=== PATIENT | female | born 1975 ===

== ENCOUNTER 2017-08-27 08:38 | Inpatient (IN) | payer OTHER ==
[~2017-08-27] VITALS: Ht 165.1 cm; Wt 90.7 kg
[~2017-08-27 08:38] MED LIST: CLONAZEPAM0.5 MG; COZAAR100 MG; NORVASC10 MG; ORPH100T PO; SYNTHROID200 MCG; SYNTHROID50 MCG PO; ULTRACET PO; WELLBUTRIN XL300 MG PO; ZOLOFT100 MG PO
[2017-08-31] MEDS ORDERED: DOXYCYCLINE HY100 MG PO (17:54)
== END 2017-08-31 18:26 | disposition home or self-care (01) | DRG 690 ==
LOC: MEDI 08:38 → SEC-K 08:38 → MEDI 15:10
PROC: BW4GZZZ Ultrasonography of Pelvic Region (ICD-10-PCS; principal; 2017-08-28)
DX: N39.0 Urinary tract infection, site not specified (principal); Q61.2 Polycystic kidney, adult type; I13.10 Hypertensive heart and chronic kidney disease without heart failure, with stage 1 through stage 4 chronic kidney disease, or unspecified chronic kidney disease; N18.2 Chronic kidney disease, stage 2 (mild); B96.29 Other Escherichia coli [E. coli] as the cause of diseases classified elsewhere

== ENCOUNTER 2019-07-16 01:00 | Inpatient (IN) | payer OTHER ==
[~2019-07-16] VITALS: Ht 121.9 cm; Wt 5.0 kg
[~2019-07-16 01:00] MED LIST changes: +DOXYCYCLINE HY100 MG PO
[2019-07-18] MEDS ORDERED: ZOFRAN8 MG PO (12:19)
[2019-07-18] MEDS ORDERED: CLINDAMYCIN HC300 MG PO (12:19)
[2019-07-18] MEDS ORDERED: PERCOCET 5-3251 EACH PO (12:19)
[2019-07-18] MEDS ORDERED: ELIQUIS2.5 MG PO (12:19)
== END 2019-07-18 12:42 | disposition home or self-care (01) | DRG 494 ==
LOC: ER 01:00 → SURH 11:02
PROVIDERS: ADMIT Orthopaedic Surgery
PROC: 0QHH36Z Insertion of Intramedullary Internal Fixation Device into Left Tibia, Percutaneous Approach (ICD-10-PCS; principal; 2019-07-16)
DX: S82.242A Displaced spiral fracture of shaft of left tibia, initial encounter for closed fracture (principal); S82.422A Displaced transverse fracture of shaft of left fibula, initial encounter for closed fracture; W18.09XA Striking against other object with subsequent fall, initial encounter; Y93.89 Activity, other specified; Y92.098 Other place in other non-institutional residence as the place of occurrence of the external cause; Y99.8 Other external cause status